=== PATIENT | female | born 1965 | race Caucasian/White ===

== ENCOUNTER 2022-10-12 08:04 | Outpatient (RCR) | payer OTHER, SELFPAY ==
--- NOTE | 2022-10-12 09:41 | OPREHPOC ---
Outpatient Therapy Plan of Care This is a Multidisciplinary Plan of Care that may contain components documented by all disciplines (PT, OT, and ST.) PT Problem 1 PT Problem #1 Knowledge Deficit PT Goal 1 Goal Patient to demonstrate independence with HEP Target Visit 5 PT Problem 2 PT Problem #2 Impaired Range of Motion PT Goal 1 Goal Patient to demonstrate 5/5 L ankle strength to return to prolonged ambulation at PLOF Target Visit 10 PT Problem 3 PT Problem #3 Pain PT Goal 1 Goal Patient to report highest pain at 2/10 Target Visit 10 PT Problem 4 PT Problem #4 Impaired Range of Motion PT Goal 1 Goal Patient to demonstrate L ankle DF to 10 deg and PT to 55 deg to return to stair navigation at PLOF Target Visit 10 PT Problem 5 PT Problem #5 Impaired Functional Mobil PT Goal 1 Goal Patient to improve LEFS by 20% Target Visit 10
--- NOTE | 2022-10-12 09:41 | PTOPEVAL1 ---
Assessment and note entered by Aubree Steiner DPT Evaluation Information Assessment Status Evaluation Diagnosis L foot pain Onset 10/04/22 Subjective Information Patient reports she has had Plantar fasciitis for the last 2 years. She reports since August pain has increased. She reports pain is worse somedays than others based on activity levels. She reports pain is closer to the heel and has some tenderness in the calf. She reports she wears a night brace some nights and has orthotics. Patient reports she enjoys playing pickleball but has not been able to play. She reports pain is worse with standing, worse in the morning, and worse with walking. She reports she has had injections, taken steriods and has done exercise to manage pain. Reported Pain Level Pain Score 5: Self Report Assessment PT Clinical Summary Patient is a 57 year old female who presents to PT with L foot and heel pain. Patient demonstrates decreased L ankle ROM, decreased L ankle strength and tenderness to the L plantar fascia consistent with Plantar fasciitis. Patient has difficulty with standing to complete house hold tasks and walking for community participation. Patient would benefit from skilled PT to address impairments and return to [facility]. Plan of Care Interventions Electrical Stimulation,Gait Training,Hot Pack/Cold Pack,Manual Therapy,Neuro Re-education,Patient/ Caregiver Educati,Therapeutic Activities, Therapeutic Exercise,Ultrasound PT Services Indicated Yes Treatment Frequency and 2x weekly for 10 visits Duration These treatments will address the objective and functional deficits as defined above. The patient will be advanced safely and appropriately in order for the patient to progress towards his/her prior level of function. Additional exercises will be introduced and as well as a comprehensive home exercise program upon discharge, if needed, ?to ensure carryover of functional gains achieved in the clinic. This treatment plan has been reviewed and agreement upon by the patient.
--- NOTE | 2022-11-16 09:29 | OPREHPOC ---
Outpatient Therapy Plan of Care This is a Multidisciplinary Plan of Care that may contain components documented by all disciplines (PT, OT, and ST.) PT Problem 1 PT Problem #1 Knowledge Deficit PT Goal 1 Goal Patient to demonstrate independence with HEP Target Visit 18 Comment updated HEP PT Problem 2 PT Problem #2 Impaired Range of Motion PT Goal 1 Goal Patient to demonstrate 5/5 L ankle strength to return to prolonged ambulation at PLOF Target Visit 18 Comment improved PT Problem 3 PT Problem #3 Pain PT Goal 1 Goal Patient to report highest pain at 2/10 Target Visit 18 Comment progressing PT Problem 4 PT Problem #4 Impaired Range of Motion PT Goal 1 Goal Patient to demonstrate L ankle DF to 10 deg and PF to 55 deg to return to stair navigation at PLOF Target Visit 18 Comment met for DF PT Problem 5 PT Problem #5 Impaired Functional Mobil PT Goal 1 Goal Patient to improve LEFS by 20% Target Visit 18 Comment continue
--- NOTE | 2022-11-16 09:29 | PTOPREEVAL ---
Assessment and note entered by Aubree Steiner DPT Evaluation Information Assessment Status Re-evaluation Diagnosis L foot pain Onset 10/04/22 Subjective Information Patient reports overall improvement in pain levels with less intensity and increased activity before onset of pain. She reports she still has pain at the end of the day. Reported Pain Level Pain Score 3: Self Report Assessment PT Clinical Summary Mrs. Devine has attended 10 visits of skilled PT with good progress towards goals. Patient demonstrates improved L ankle ROM and strength as well as reported improvement in ability to stand and walk for prolonged period of time. Patient continues to have pain after day of walking and being active and would benefit from continued skilled PT to address remaining impairments and return to [facility]. Plan of Care Interventions Electrical Stimulation,Gait Training,Hot Pack/Cold Pack,Manual Therapy,Neuro Re-education,Patient/ Caregiver Educati,Therapeutic Activities, Therapeutic Exercise,Ultrasound PT Services Indicated Yes Treatment Frequency and continue 2x weekly for 8 visits Duration These treatments will address the objective and functional deficits as defined above. The patient will be advanced safely and appropriately in order for the patient to progress towards his/her prior level of function. Additional exercises will be introduced and as well as a comprehensive home exercise program upon discharge, if needed, ?to ensure carryover of functional gains achieved in the clinic. This treatment plan has been reviewed and agreement upon by the patient.
--- NOTE | 2022-12-20 09:14 | OPREHPOC ---
Outpatient Therapy Plan of Care This is a Multidisciplinary Plan of Care that may contain components documented by all disciplines (PT, OT, and ST.) PT Problem 1 PT Problem #1 Knowledge Deficit PT Goal 1 Goal Patient to demonstrate independence with HEP Target Visit 18 Progress Met Comment . PT Problem 2 PT Problem #2 Impaired Range of Motion PT Goal 1 Goal Patient to demonstrate 5/5 L ankle strength to return to prolonged ambulation at PLOF Target Visit 18 Progress Met Comment . PT Problem 3 PT Problem #3 Pain PT Goal 1 Goal Patient to report highest pain at 2/10 Target Visit 18 Progress Not Met Comment . PT Problem 4 PT Problem #4 Impaired Range of Motion PT Goal 1 Goal Patient to demonstrate L ankle DF to 10 deg and PF to 55 deg to return to stair navigation at PLOF Target Visit 18 Progress Met Comment . PT Problem 5 PT Problem #5 Impaired Functional Mobil PT Goal 1 Goal Patient to improve LEFS by 20% Target Visit 18 Progress Met Comment .
--- NOTE | 2022-12-20 09:14 | PTOPDC ---
Assessment and note entered by Aubree Steiner DPT Evaluation Information Assessment Status Discharge Diagnosis L foot pain Onset 10/04/22 Subjective Information She reports her pain is signficiantly improved. She reports that if she is on her feet all day she has a sorness . She reports she is compliant with HEP. She reports that she has not had any recent ankle pain. Reported Pain Level Pain Score 1: Self Report Assessment PT Clinical Summary Mrs. Devine was seen for 18 visits of skilled PT with great improvement. She met goals for HEP, ROM , and strength. She did not meet goals for pain but has made good progress. She is independent with HEP and is appropriate for DC at this time. Plan of Care PT Services Indicated No
== END 2022-12-20 11:35 | disposition home or self-care (01) ==
LOC: CHSPT 08:04
DX: M72.2 Plantar fascial fibromatosis (principal)
CPT/HCPCS: 97014; 97110; 97140; 97150; 97161; G0283